=== PATIENT | female | born 1960 | race Caucasian/White ===

== ENCOUNTER 2018-06-05 04:47 | Emergency (ER) | payer OTHER ==
[~2018-06-05] VITALS: Ht 154.9 cm; Wt 81.6 kg
[~2018-06-05 04:47] MED LIST: DILTIAZEM 24HR240 MG PO; HYOSCYAMINE0.125 M1 SL; INTESTINEX680 MG PO; IRBESARTAN-HCT1 EACH PO; OXYC1TAB9 PO; PRAVASTATIN SOD40 MG PO; PROTONIX40 MG PO
== END 2018-06-05 10:15 | disposition home or self-care (01) ==
LOC: ER 04:47
DX: J40 Bronchitis, not specified as acute or chronic (principal); H66.92 Otitis media, unspecified, left ear

== ENCOUNTER 2018-06-13 05:24 | Emergency (ER) | payer OTHER ==
[~2018-06-13] VITALS: Ht 154.9 cm; Wt 81.6 kg
[2018-06-13] MEDS ORDERED: MEDROLPACK PO (10:12)
[2018-06-13] MEDS ORDERED: TUSSI PRES-B L120 M1 PO (10:12)
[2018-06-13] MEDS ORDERED: ZITHROMAX TRI-500 MG PO (10:12)
== END 2018-06-13 10:39 | disposition home or self-care (01) ==
LOC: ER 05:24
DX: R05 Cough (principal)

== ENCOUNTER 2019-03-14 07:37 | Outpatient (CLI) | payer OTHER ==
[~2019-03-14 07:37] MED LIST changes: +MEDROLPACK PO; +TUSSI PRES-B L120 M1 PO; +ZITHROMAX TRI-500 MG PO
== END 2019-03-14 11:02 | disposition home or self-care (01) ==
LOC: TOM 07:37
DX: R10.12 Left upper quadrant pain (principal); Z86.010 Personal history of colon polyps

== ENCOUNTER 2022-02-11 12:00 | Outpatient (CLI) | payer OTHER | END 2022-02-11 12:02 | disposition home or self-care (01) | LOC: LAB 12:00 | PROVIDERS: ATTEND Radiology Diagnostic Radiology | DX: R10.32 Left lower quadrant pain (principal) ==

== ENCOUNTER 2022-03-02 07:13 | Outpatient (CLI) | payer OTHER | END 2022-03-02 07:31 | disposition home or self-care (01) | LOC: TOM 07:13 | PROVIDERS: ATTEND Internal Medicine Gastroenterology | DX: R10.32 Left lower quadrant pain (principal) ==

== ENCOUNTER 2024-05-17 13:10 | Outpatient (CLI) | payer OTHER ==
[2024-05-17 14:51] LABS: CREATININE SERUM 0.81 mg/dL (0.55-1.02)
== END 2024-05-17 13:53 | disposition home or self-care (01) ==
LOC: LAB 13:10
PROVIDERS: ATTEND Radiology Diagnostic Radiology
DX: R19.7 Diarrhea, unspecified (principal)

== ENCOUNTER 2024-05-25 07:10 | Outpatient (CLI) | payer OTHER | END 2024-05-25 07:22 | disposition home or self-care (01) | LOC: TOM 07:10 | PROVIDERS: ATTEND Surgery | DX: R10.12 Left upper quadrant pain (principal); R10.84 Generalized abdominal pain; R19.7 Diarrhea, unspecified ==

== ENCOUNTER → 2024-06-21 07:05 | Outpatient (CLI) | payer OTHER | END | disposition home or self-care (01) | LOC: NUCLEAR 07:00 | PROVIDERS: ATTEND Surgery | DX: R10.12 Left upper quadrant pain (principal); R10.84 Generalized abdominal pain; R19.7 Diarrhea, unspecified ==